=== PATIENT | female | born 1975 | race Two or more races ===

== ENCOUNTER 2025-07-02 07:29 | Outpatient (CLI) | payer BC ==
[2025-07-02 08:03] LABS: Hematocrit 40.8 % (36.0-46.0); Hemoglobin 14.1 g/dL (12.2-16.2); Mean Corpuscular Hemoglobin 30.6 pg (28.0-32.0); Mean Corpuscular Volume 88.1 fL (80.0-100.0); Nucleated Red Blood Cells % 0.1 %
[2025-07-02 08:17] LABS: Alanine Aminotransferase 25 U/L (7-40); Albumin 4.7 g/dL (3.2-4.8); Alkaline Phosphatase 79 U/L (46-116); Anion Gap 9 (5-15); BUN/Creatinine Ratio 11.9 (10.0-20.0); Calcium 9.6 mg/dL (8.7-10.4); Carbon Dioxide 27 mmol/L (20-31); Chloride 107 mmol/L (98-107); HDL Cholesterol 58 mg/dL (40-59); Potassium 4.3 mmol/L (3.5-5.1); Sodium 143 mmol/L (136-145); Total Protein 7.3 g/dL (5.7-8.2)
[2025-07-02 08:18] LABS: Bilirubin, Total 0.4 mg/dL (0.2-1.0)
[2025-07-02 08:21] LABS: Blood Urea Nitrogen 8 mg/dL (9-23); Cholesterol 218 mg/dL (< 200); Glucose 108 mg/dL (74-106); Triglycerides 173 mg/dL (< 150)
[2025-07-02 08:31] LABS: Urine Protein, UAD Negative (Negative)
== END 2025-07-02 17:00 | disposition home or self-care (01) ==
LOC: LAB 07:29
PROVIDERS: ATTEND Internal Medicine
DX: I10 Essential (primary) hypertension (principal)
CPT/HCPCS: 36415; 80053; 80061; 81001; 84439; 84443; 85025; 85652; 86304